=== PATIENT | male | born 1960 | race Caucasian/White ===

== ENCOUNTER 2021-02-27 07:40 | Inpatient (IN) | payer SELFPAY ==
[2021-02-27 08:00] LABS: Absolute Lymphocytes (CBC) 1.3 K/uL (0.7-4.9); Basophils % 0.8 % (0-1.3); Lymphocytes % 12.3 % (15.3-44.8); MPV 8.6 fL (7.6-11.3)
[2021-02-27] MEDS ORDERED: METHYLPREDNISOLONE 125 MG INJ ONE (08:07)
[2021-02-27] MEDS ORDERED: ALBUTEROL 2.5 MG/3 ML NEB SOL ONE (08:07)
[2021-02-27] MEDS ORDERED: IPRATROPIUM BROM 0.5MG/2.5ML ONE (08:07)
[2021-02-27 08:19] LABS: CKMB Creatine Kinase MB 6.2 ng/mL (1.0-3.6); Potassium 3.8 mmol/L (3.5-5.1); Troponin (Emerg Dept Use Only) 0.3 ng/mL (0.0-0.045)
[2021-02-27] MEDS ORDERED: ASPIRIN 81 MG CHEWABLE TABLET ONE (09:15)
[2021-02-27] MEDS ORDERED: ENOXAPARIN 60 MG/0.6 ML SQ ONE (09:16)
--- NOTE | 2021-02-27 09:49 | ER ---
Nurse's Notes [facility] Name: Sukhjinder Han Age: 60 yrs Sex: Male : 1960 Arrival Date: 02/27/2021 Time: 07:41 Bed 7 Private MD: Diagnosis: Non-ST elevation (NSTEMI) myocardial infarction Presentation: 02/27 07:41 Chief complaint: Patient states: Episodes of dizziness and shortness of breath that ss began yesterday evening after sprayed DEEP MELO OFF in van for mosquitoes. PT denies pain at this time. Coronavirus screen: Client denies travel out of the [place] in the last 14 days. Client presents with at least one sign or symptom that may indicate coronavirus-19. Standard/surgical mask placed on the client. Provider contacted for isolation considerations. Ebola Screen: Patient denies exposure to infectious person. Patient denies travel to an Ebola-affected area in the 21 days before illness onset. Initial Sepsis Screen: Does the patient meet any 2 criteria? No. Patient's initial sepsis screen is negative. Does the patient have a suspected source of infection? No. Patient's initial sepsis screen is negative. Risk Assessment: Do you want to hurt yourself or someone else? Patient reports no desire to harm self or others. Onset of symptoms was February 26, 2021. 07:41 Method Of Arrival: Wheelchair ss 07:41 Acuity: AMANDA 3 ss Historical: - Allergies: 07:44 No Known Allergies; ss - PMHx: 07:44 Myocardial infarction; Hepatitis; Anxiety; Depression; Hypertension; ss - PSHx: 07:44 Pacemaker/defib; Angioplasty; ss - Immunization history:: Adult Immunizations up to date, Client reports having NOT received the Covid vaccine. - Social history:: Smoking status: Patient reports the use of cigarette tobacco products, smokes one pack cigarettes per day. - Family history:: not pertinent. Screenin:44 Abuse screen: Denies threats or abuse. Denies injuries from another. Nutritional hb screening: No deficits noted. Tuberculosis screening: No symptoms or risk factors identified. Fall Risk None identified. Assessment: 07:45 General: Appears in no apparent distress. Behavior is cooperative, anxious. Pain: hb Denies pain. Neuro: Level of Consciousness is awake, alert, obeys commands, Oriented to person, place, time, situation. Cardiovascular: Patient's skin is warm and dry. Rhythm is regular. Respiratory: Reports shortness of breath Airway is patent Respiratory effort is even, unlabored, Respiratory pattern is tachypnea. GI: No signs and/or symptoms were reported involving the gastrointestinal system. : No signs and/or symptoms were reported regarding the genitourinary system. EENT: No signs and/or symptoms were reported regarding the EENT system. Derm: Skin is pink, warm \T\ dry. Musculoskeletal: No signs and/or symptoms reported regarding the musculoskeletal system. 09:00 Reassessment: Patient and/or family updated on plan of care and expected duration. Pain hb level reassessed. Patient is alert, oriented x 3, equal unlabored respirations, skin warm/dry/pink. 10:00 Reassessment: Patient appears in no apparent distress at this time. Patient and/or hb family updated on plan of care and expected duration. Pain level reassessed. Patient is alert, oriented x 3, equal unlabored respirations, skin warm/dry/pink. 11:00 Reassessment: Patient appears in no apparent distress at this time. Patient and/or hb family updated on plan of care and expected duration. Pain level reassessed. Patient is alert, oriented x 3, equal unlabored respirations, skin warm/dry/pink. Vital Signs: 07:41 BP 154 / 97; Pulse 96; Resp 22; Temp 98.2(O); Pulse Ox 98% on R/A; Weight 61.23 kg; Height 5 ft. 11 in. (180.34 cm); Pain 0/10; 09:07 BP 156 / 87; Pulse 98; Resp 32; Pulse Ox 99% on R/A; hb 09:45 BP 147 / 99; Pulse 107; Resp 22; Pulse Ox 95% on R/A; tr6 11:00 BP 114 / 89; Pulse 96; Resp 22; Pulse Ox 96% on 2 lpm NC; hb 07:41 Body Mass Index 18.83 (61.23 kg, 180.34 cm) ED Course: 07:41 Patient arrived in ED. ss 07:41 Dolly Gaitan MD is Attending Physician. ma2 07:43 Triage completed. ss 07:43 Jaimee Martinez RN is Primary Nurse. tr6 07:44 Arm band placed on. hb 07:44 Patient has correct armband on for positive identification. Bed in low position. Call hb light in reach. potline monitor on. Pulse ox on. NIBP on. 07:50 Inserted saline lock: 20 gauge in right antecubital area, using aseptic technique. hb Blood collected. 08:58 Chest Single View XRAY In Process Unspecified. EDMS 09:48 Chris Garcia is Hospitalizing Provider. ma2 09:52 No provider procedures requiring assistance completed. tr6 11:30 Patient admitted, IV remains in place. hb Administered Medications: 07:53 Drug: Albuterol 2.5 mg Route: Inhalation; hb 07:53 Drug: SOLU-Medrol (methylPrednisoLONE) 125 mg Route: IVP; Site: right antecubital; hb 09:37 Follow up: Response: No adverse reaction tr6 07:54 Drug: AtroVENT (ipratropium) Aerosol 0.5 mg Route: Inhalation; hb 08:20 Drug: Albuterol 2.5 mg Route: Inhalation; tr6 08:20 Drug: Albuterol 2.5 mg Route: Inhalation; tr6 08:20 Drug: AtroVENT (ipratropium) Aerosol 0.5 mg Route: Inhalation; tr6 08:20 Drug: AtroVENT (ipratropium) Aerosol 0.5 mg Route: Inhalation; tr6 09:06 Drug: Aspirin Chewable Tablet 324 mg Route: PO; tr6 09:37 Follow up: Response: No adverse reaction tr6 09:06 Drug: Lovenox (enoxaparin) 60 mg Route: Sub-Q; Site: abdomen; tr6 09:37 Follow up: Response: No adverse reaction tr6 09:39 Drug: Ativan (LORazepam) 1 mg Route: IVP; Site: right antecubital; tr6 Outcome: 09:48 Decision to Hospitalize by Provider. ma2 11:29 Admitted to Tele accompanied by tech, via wheelchair, room 210, with oxygen, with hb chart, Report called to Liss BRYSON 11:29 Condition: stable 11:29 Instructed on the need for admit, Demonstrated understanding of instructions. 11:57 Patient left the ED. ss Signatures: Dispatcher [employer] EDIN Karon Vora RN RN Violetta Moise RN RN Dolly Gaitan MD MD ma2 Jaimee Martinez, RN RN tr6
--- NOTE | 2021-02-27 09:49 | EDPHYS ---
Physician Documentation [facility] Name: Sukhjinder Han Age: 60 yrs Sex: Male : 1960 Arrival Date: 02/27/2021 Time: 07:41 Bed 7 Private MD: ED Physician Dolly Gaitan HPI: 02/27 08:38 This 60 yrs old Male presents to ER via Wheelchair with complaints of Shortness Of ma2 Breath, Chemical Inhalation. 08:38 Onset: The symptoms/episode began/occurred gradually, 1 day(s) ago. Associated signs ma2 and symptoms: Pertinent negatives: diaphoresis, fever, hemoptysis. Severity of symptoms: At their worst the symptoms were mild in the emergency department the symptoms. The patient has experienced similar episodes in the past. Historical: - Allergies: 07:44 No Known Allergies; ss - PMHx: 07:44 Myocardial infarction; Hepatitis; Anxiety; Depression; Hypertension; ss - PSHx: 07:44 Pacemaker/defib; Angioplasty; ss - Immunization history:: Adult Immunizations up to date, Client reports having NOT received the Covid vaccine. - Social history:: Smoking status: Patient reports the use of cigarette tobacco products, smokes one pack cigarettes per day. - Family history:: not pertinent. ROS: 08:38 Constitutional: Negative for fever, chills, and weight loss. ma2 08:38 All other systems are negative. Exam: 08:38 Constitutional: This is a well developed, well nourished patient who is awake, alert, ma2 and in no acute distress. Head/Face: Normocephalic, atraumatic. Eyes: Pupils equal round and reactive to light, extra-ocular motions intact. Lids and lashes normal. Conjunctiva and sclera are non-icteric and not injected. Cornea within normal limits. Periorbital areas with no swelling, redness, or edema. ENT: Nares patent. No nasal discharge, no septal abnormalities noted. Tympanic membranes are normal and external auditory canals are clear. Oropharynx with no redness, swelling, or masses, exudates, or evidence of obstruction, uvula midline. Mucous membranes moist. Neck: Trachea midline, no thyromegaly or masses palpated, and no cervical lymphadenopathy. Supple, full range of motion without nuchal rigidity, or vertebral point tenderness. No Meningismus. Chest/axilla: Normal chest wall appearance and motion. Nontender with no deformity. No lesions are appreciated. Cardiovascular: Regular rate and rhythm with a normal S1 and S2. No gallops, murmurs, or rubs. Normal PMI, no JVD. No pulse deficits. Respiratory: Lungs have equal breath sounds bilaterally, clear to auscultation and percussion. No rales, rhonchi or wheezes noted. No increased work of breathing, no retractions or nasal flaring. Abdomen/GI: Soft, non-tender, with normal bowel sounds. No distension or tympany. No guarding or rebound. No evidence of tenderness throughout. Back: No spinal tenderness. No costovertebral tenderness. Full range of motion. Skin: Warm, dry with normal turgor. Normal color with no rashes, no lesions, and no evidence of cellulitis. MS/ Extremity: Pulses equal, no cyanosis. Neurovascular intact. Full, normal range of motion. Neuro: Awake and alert, GCS 15, oriented to person, place, time, and situation. Cranial nerves II-XII grossly intact. Motor strength 5/5 in all extremities. Sensory grossly intact. Cerebellar exam normal. Normal gait. Vital Signs: 07:41 BP 154 / 97; Pulse 96; Resp 22; Temp 98.2(O); Pulse Ox 98% on R/A; Weight 61.23 kg; ss Height 5 ft. 11 in. (180.34 cm); Pain 0/10; 09:07 BP 156 / 87; Pulse 98; Resp 32; Pulse Ox 99% on R/A; hb 09:45 BP 147 / 99; Pulse 107; Resp 22; Pulse Ox 95% on R/A; tr6 11:00 BP 114 / 89; Pulse 96; Resp 22; Pulse Ox 96% on 2 lpm NC; hb 07:41 Body Mass Index 18.83 (61.23 kg, 180.34 cm) ss MDM: 07:41 Patient medically screened. ma2 08:38 Differential diagnosis: Anxiety Reaction asthma, Bronchitis reactive airway disease. ma2 Data reviewed: vital signs, nurses notes. Counseling: I had a detailed discussion with the patient and/or guardian regarding: the historical points, exam findings, and any diagnostic results supporting the discharge/admit diagnosis, the presence of at least one elevated blood pressure reading (>120/80) during this emergency department visit, the need for outpatient follow up. Medical screen evaluation completed. EMTALA emergency medical condition absent. 02/27 07:43 Order name: BMP; Complete Time: 08:44 ma2 02/27 07:43 Order name: CBC with Diff; Complete Time: 08:44 ma2 02/27 07:43 Order name: Ckmb; Complete Time: 08:44 ma2 02/27 07:43 Order name: Troponin (emerg Dept Use Only); Complete Time: 08:44 ma2 02/27 08:48 Order name: BNP; Complete Time: 09:22 ma2 02/27 08:59 Order name: COVID-19 : Document "Date of Symptom Onset" if Symptomatic. ss 02/27 07:43 Order name: EKG; Complete Time: 07:43 ma2 02/27 08:47 Order name: Chest Single View XRAY ma2 02/27 07:43 Order name: Cardiac monitoring; Complete Time: 07:53 ma2 02/27 07:43 Order name: EKG - Nurse/Tech; Complete Time: 08:06 2 02/27 07:43 Order name: IV Saline Lock; Complete Time: 07:54 ma2 02/27 07:43 Order name: Labs collected and sent; Complete Time: 07:54 ma2 02/27 07:43 Order name: O2 Per Protocol; Complete Time: 07:54 ma2 02/27 07:43 Order name: O2 Sat Monitoring; Complete Time: 08:21 ma2 Administered Medications: 07:53 Drug: Albuterol 2.5 mg Route: Inhalation; hb 07:53 Drug: SOLU-Medrol (methylPrednisoLONE) 125 mg Route: IVP; Site: right antecubital; hb 09:37 Follow up: Response: No adverse reaction tr6 07:54 Drug: AtroVENT (ipratropium) Aerosol 0.5 mg Route: Inhalation; hb 08:20 Drug: Albuterol 2.5 mg Route: Inhalation; tr6 08:20 Drug: Albuterol 2.5 mg Route: Inhalation; tr6 08:20 Drug: AtroVENT (ipratropium) Aerosol 0.5 mg Route: Inhalation; tr6 08:20 Drug: AtroVENT (ipratropium) Aerosol 0.5 mg Route: Inhalation; tr6 09:06 Drug: Aspirin Chewable Tablet 324 mg Route: PO; tr6 09:37 Follow up: Response: No adverse reaction tr6 09:06 Drug: Lovenox (enoxaparin) 60 mg Route: Sub-Q; Site: abdomen; tr6 09:37 Follow up: Response: No adverse reaction tr6 09:39 Drug: Ativan (LORazepam) 1 mg Route: IVP; Site: right antecubital; tr6 Disposition: 02/27/21 09:48 Hospitalization ordered by Chris Garcia for Inpatient Admission. Preliminary diagnosis is Non-ST elevation (NSTEMI) myocardial infarction. - Bed requested for Telemetry/MedSurg (Inpatient). - Status is Inpatient Admission. ss - Condition is Stable. - Problem is new. - Symptoms are unchanged. Signatures: Dispatcher [employer] EDMS Riana Child RN RN Karon Vora RN RN ss Baxter, Heather, RN RN Dolly Gaitan MD MD [facility] Jaimee Martinez RN RN tr6 Corrections: (The following items were deleted from the chart) 11:10 09:48 Hospitalization Ordered by Chris Garcia for Inpatient Admission. Preliminary dw diagnosis is Non-ST elevation (NSTEMI) myocardial infarction. Bed requested for Telemetry/MedSurg (Inpatient). Status is Inpatient Admission. Condition is Stable. Problem is new. Symptoms are unchanged. [facility] 11:57 11:10 02/27/2021 09:48 Hospitalization Ordered by Chris Garcia for Inpatient ss Admission. Preliminary diagnosis is Non-ST elevation (NSTEMI) myocardial infarction. Bed requested for Telemetry/MedSurg (Inpatient). Status is Inpatient Admission. Condition is Stable. Problem is new. Symptoms are unchanged. dw
[2021-02-27] MEDS ORDERED: LORazepam 2 MG/ML VIAL ONE (09:59)
--- NOTE | 2021-02-27 10:14 | RAD REPORT ---
EXAM DESCRIPTION: RAD - Chest Single View - 02/27/2021 9:00 am CLINICAL HISTORY: COUGH, possible inhalation injury COMPARISON: None TECHNIQUE: AP portable chest image was obtained 02/27/2021 9:00 am . FINDINGS: Focal airspace opacification is present in the suprahilar left upper lobe region. Air bron chograms are present. Overall interstitial prominence present. Focal interstitial and alveolar opacit ies are present in the lower right lung field. Heart and vasculature are normal. Left costophrenic an gle blunting is present. There is probably right costophrenic angle blunting as well. A defibrillator is place right-side of the chest. No acute bony abnormality seen. No acute aortic findings suspected . IMPRESSION: Left upper lobe and medial right base airspace opacification with interstitial opacities elsewhere in the chest. Small bilateral pleural effusions. The above detailed findings are possibly pulmonary edema from an inhalation injury. However, pattern suggests bilateral pneumonia. Continued close follow-up is needed to assure complete clearing and no possible underlying mass.
--- NOTE | 2021-02-27 11:05 | P.HP ---
Certification for Inpatient Patient admitted to: Observation With expected LOS: <2 Midnights Practitioner: I am a practitioner with admitting privileges, knowledge of patient current condition, hospital course, and medical plan of care. Services: Services provided to patient in accordance with Admission requirements found in Title 42 Section 412.3 of the Code of Federal Regulations Patient History Date of Service: 02/27/21 Reason for admission: Shortness of breath History of Present Illness: 60-year-old gentleman with a history of coronary artery disease, PR, congestive heart failure was brought to the emergency department due to respiratory distress. Per report patient developed shortness of breath and attributed her symptoms to possible allergy to a spray his used in his car. The patient was given Ativan for anxiety in the ED. He was somnolent and could not provide any history during my examination. Chest x-ray done in the ED edema vascular congestion. Noted patient has an AICD. Initial troponin in the ED elevated to 0.3. EKG demonstrated sinus rhythm, no significant ischemic changes. BNP elevated. Patient was given breathing treatment, full-dose Lovenox and aspirin. He is hospitalized for further management. - Past Medical/Surgical History -: CAD -: h/o PR -: AICD - Social History Smoking Status: Unknown if ever smoked Place of Residence: Home Review of Systems is unable to be obtained Physical Examination - Physical Exam General: In no apparent distress, Other (Somnolent) HEENT: Normocephalic, PERRLA, Mucous membr. moist/pink, Sclerae nonicteric Neck: Supple, 2+ carotid pulse no bruit, JVD not distended Respiratory: Normal air movement, Crackles/rales (Mild bibasilar crackles), Other (No rhonchi) Cardiovascular: No edema, Normal S1 S2, Other (Tachycardia) Gastrointestinal: Normal bowel sounds, Soft and benign, Non-distended, No tenderness Musculoskeletal: No swelling, No tenderness Integumentary: No rashes, No erythema Neurological: Normal strength at 5/5 x4 extr, Other (Somnolent) Lymphatics: No axilla or inguinal lymphadenopathy - Studies Laboratory Data (last 24 hrs) 02/27/21 07:52: WBC 10.80, Hgb 13.5 L, Hct 40.0, Plt Count 257 02/27/21 07:52: Sodium 140, Potassium 3.8, BUN 22 H, Creatinine 0.91, Glucose 176 H Assessment and Plan - Problems (Diagnosis) (1) Elevated troponin Current Visit: Yes Status: Acute (2) Acute CHF Current Visit: Yes Status: Acute (3) Coronary artery disease Current Visit: Yes Status: Acute - Plan Place patient under observation. Treat CHF exacerbation with IV Lasix. Bronchodilators Obtain echocardiogram. Continue to trend troponin. Full-dose Lovenox. Collect, validate and reconcile home medications. Monitor renal function on IV Lasix. - Advance Directives Does patient have a Living Will: No Does patient have a Durable POA for Healthcare: No
[2021-02-27] MEDS ORDERED: ACETAMINOPHEN 500 MG TAB PO PRN (12:18)
[2021-02-27] MEDS ORDERED: FUROSEMIDE 40 MG/4 ML VIAL IV SCH (17:00)
[2021-02-27] MEDS: ENOXAPARIN 60 MG/0.6 ML SQ SCH (20:23)
[2021-02-28 04:32] LABS: Absolute Lymphocytes (CBC) 1.6 K/uL (0.7-4.9); Basophils % 0.5 % (0-1.3); Hematocrit 42.4 % (39.6-49.0); Lymphocytes % 15.5 % (15.3-44.8); MPV 9.1 fL (7.6-11.3); RBC Red Blood Cell Count 4.43 M/uL (4.33-5.43)
[2021-02-28 04:47] LABS: Magnesium 2.6 mg/dL (1.8-2.4); Phosphorus 2.9 mg/dL (2.5-4.9)
[2021-02-28 04:51] LABS: BUN Blood Urea Nitrogen 23 mg/dL (7-18); Bicarbonate 24 mmol/L (21-32); Glucose Level 115 mg/dL (74-106); HDL Cholesterol 53 mg/dL (40-60); LDL Cholesterol, Calculated 121 (<130); Potassium 4.4 mmol/L (3.5-5.1); Sodium Level 144 mmol/L (136-145)
--- NOTE | 2021-02-28 08:25 | EKG ---
Test Date: 2021-02-27 Test Time: 08:03:40 Licensed Insurance Agent: KELLY MEASUREMENT RESULTS: Intervals: Rate: 89 GA: 156 QRSD: 96 QT: 400 QTc: 486 [place]: P: 69 GA: 156 QRS: 1 T: 100 INTERPRETIVE STATEMENTS: Normal sinus rhythm Left atrial enlargement Septal infarct, age undetermined Abnormal ECG No previous ECG available for comparison Electronically Signed On 02-28-21 08:23:53 CDT by Richard Armstrong
[2021-02-28] MEDS: ENOXAPARIN 60 MG/0.6 ML SQ SCH (09:00)
[2021-02-28] MEDS ORDERED: ASPIRIN EC 81 MG TAB PO SCH (09:00)
[2021-02-28 09:31] VITALS: O2SAT 94
--- NOTE | 2021-02-28 12:10 | P.DS ---
Admission Date: 02/28/21 Discharge Date: 02/28/21 Disposition: ROUTINE DISCHARGE Discharge Condition: FAIR Reason for Admission: Shortness of breath - Problems (1) Elevated troponin Current Visit: Yes Status: Acute (2) Acute CHF Current Visit: Yes Status: Acute (3) Coronary artery disease Current Visit: Yes Status: Acute Brief History of Present Illness: 60-year-old gentleman with a history of coronary artery disease, [place], congestive heart failure was brought to the emergency department due to respiratory distress. Per report patient developed shortness of breath and attributed her symptoms to possible allergy to a spray his used in his car. The patient was given Ativan for anxiety in the ED. He was somnolent and could not provide any history during my examination. Chest x-ray done in the ED edema vascular congestion. Noted patient has an AICD. Initial troponin in the ED elevated to 0.3. EKG demonstrated sinus rhythm, no significant ischemic changes. BNP elevated. Patient was given breathing treatment, full-dose Lovenox and aspirin. He is hospitalized for further management. Hospital Course: Patient admitted to the medical floor and treated for CHF exacerbation with IV Lasix. His shortness of breath resolved with treatment. Patient's symptoms likely secondary to CHF exacerbation. His troponin was mildly elevated to 0.3 and trended flat making ACS unlikely. Echocardiogram done and the result is pending to be followed. Patient's symptoms significantly improved. He is ambulating without shortness of breath and feels he is back to baseline. He is deemed stable for discharge. He is prescribed Lasix and aspirin. Vital Signs/Physical Exam: Temp Pulse Resp BP Pulse Ox 98.2 F 97 H 20 114/77 97 02/28/21 08:00 02/28/21 08:00 02/28/21 08:00 02/28/21 08:00 02/28/21 08:00 General: Alert, In no apparent distress, Oriented x3 HEENT: Mucous membr. moist/pink Neck: JVD not distended Respiratory: Clear to auscultation bilaterally, Normal air movement Cardiovascular: No edema, Regular rate/rhythm, Normal S1 S2 Gastrointestinal: Soft and benign, Non-distended, No tenderness Musculoskeletal: No swelling Integumentary: No rashes Neurological: Normal strength at 5/5 x4 extr Laboratory Data at Discharge: WBC 10.30 K/uL (4.3-10.9) 06/21/21 04:07 Hgb 14.6 g/dL (13.6-17.9) 02/28/21 04:07 Hct 42.4 % (39.6-49.0) 02/28/21 04:07 Plt Count 298 K/uL (152-406) 02/28/21 04:07 Sodium 144 mmol/L (136-145) 02/28/21 04:07 Potassium 4.4 mmol/L (3.5-5.1) 02/28/21 04:07 BUN 23 mg/dL (7-18) H 02/28/21 04:07 Creatinine 0.76 mg/dL (0.55-1.3) 02/28/21 04:07 Glucose 115 mg/dL (74-106) H 02/28/21 04:07 Phosphorus 2.9 mg/dL (2.5-4.9) 02/28/21 04:07 Magnesium 2.6 mg/dL (1.8-2.4) H 02/28/21 04:07 Troponin I 0.24 ng/mL (0.0-0.045) H 02/27/21 16:37 Triglycerides 119 mg/dL (<150) 02/28/21 04:07 Cholesterol 198 mg/dL (<200) 02/28/21 04:07 HDL Cholesterol 53 mg/dL (40-60) 02/28/21 04:07 Cholesterol/HDL Ratio 3.74 02/28/21 04:07 Home Medications: Aspirin [Aspirin EC] 81 mg PO DAILY #30 tablet. 02/28/21 Furosemide [Lasix] 40 mg PO DAILY #30 tab 02/28/21 New Medications: Aspirin [Aspirin EC] 81 mg PO DAILY #30 tablet. Furosemide [Lasix] 40 mg PO DAILY #30 tab Diet: AHA Activity: Ad gwen Followup: Unknown,U [Primary Care Provider] - 1-2 Weeks Time spent managing pt's care (in minutes): 28
--- NOTE | 2021-02-28 15:01 | RAD REPORT ---
EXAM DESCRIPTION: RAD - Chest Single View - 02/28/2021 2:56 pm CLINICAL HISTORY: CHF versus inflammatory lung disease. Chest pain. COMPARISON: Chest Single View dated 02/27/2021 FINDINGS: Portable technique limits examination quality. Moderate improvement bilateral pulmonary opacities noted since the study. Trace bilateral pleural eff usions. The heart is upper limit of normal in size. Dual lead pacer/ defibrillator device. IMPRESSION: Moderate improvement in lung aeration since yesterday's study.
[2021-02-28 15:02] VITALS: BP 130/74; TEMP 97.9
[2021-02-28 16:23] VITALS: BMI 18.1
[2021-02-28] MEDS ORDERED: ENSURE ENLIVE 237 ML CAN PO SCH (21:00)
--- NOTE | 2021-03-01 08:11 | ECHO ---
HEIGHT: 5 ft 11 in WEIGHT: 130 lb 0 oz DATE OF STUDY: 02/28/[address]: reji masterson 2-DIMENSIONAL: YES M.MODE: YES DOPPLER: YES COLOR FLOW: YES TDS: NO PORTABLE: NO DEFINITY: NO BUBBLE STUDY: NO DIAGNOSIS: CONGESTIVE HEART FAILURE CARDIAC HISTORY: CATHERIZATION: SURGERY: PROSTHETIC VALVE: PACEMAKER: MEASUREMENTS (cm) DIASTOLIC (NORMALS) SYSTOLIC (NORMALS) IVSd 0.8 (0.6-1.2) LA Diam 4.0 (1.9-4.0) LVEF 19% LVIDd 6.9 (3.5-5.7) LVIDs 6.3 (2.0-3.5) %FS 9% LVPWd 0.9 (0.6-1.2) Ao Diam 3.3 (2.0-3.7) 2 DIMENSIONAL ASSESSMENT: RIGHT ATRIUM: NORMAL LEFT ATRIUM: NORMAL RIGHT VENTRICLE: NORMAL LEFT VENTRICLE: DILATED TRICUSPID VALVE: NORMAL MITRAL VALVE: MILD MITRAL REGURGITATION PULMONIC VALVE: PULMONIC REGURGITATION AORTIC VALVE: NORMAL PERICARDIAL EFFUSION: NORMAL AORTIC ROOT: NORMAL LEFT VENTRICULAR WALL MOTION: SEVERE GLOBAL HYPOKINESIS. DOPPLER/COLOR FLOW: MILD MITRAL AND PULMONIC REGURGITATION. COMMENTS: SEVERELY DEPRESSED LEFT VENTRICULAR EJECTION FRACTION 15-20% WITH DILATED LEFT VENTRICLE. SEVERE GLOBAL HYPOKINESIS. MILD MITRAL REGURGITATION. MILD PULMONIC REGURGITATION. MODERATE DIASTOLIC DYSFUNCTION. TECHNOLOGIST: LESLIE BROWNE
--- NOTE | 2021-03-02 16:34 | EKG ---
Test Date: 2021-02-27 Test Time: 13:37:09 Regional Engineer: PATRICIA MEASUREMENT RESULTS: Intervals: Rate: 97 AR: 152 QRSD: 100 QT: 394 QTc: 500 [place]: P: 66 AR: 152 QRS: 4 T: 97 INTERPRETIVE STATEMENTS: Normal sinus rhythm Left atrial enlargement Septal infarct, age undetermined Prolonged QT Abnormal ECG Compared to ECG 02/27/2021 08:03:40 Prolonged QT interval now present Myocardial infarct finding still present Electronically Signed On 03-02-21 16:30:11 CDT by Richard Armstrong
--- NOTE | 2021-03-02 16:34 | EKG ---
Test Date: 2021-02-27 Test Time: 13:43:04 Rim Turning Machine Operator: PATRICIA MEASUREMENT RESULTS: Intervals: Rate: 0 [place]: QRSD: 0 QT: 0 QTc: 0 [place]: P: [place]: QRS: 0 T: 0 INTERPRETIVE STATEMENTS: No QRS complexes found, no ECG analysis possible Compared to ECG 02/27/2021 13:37:09 Sinus rhythm no longer present Atrial abnormality no longer present Myocardial infarct finding no longer present Prolonged QT interval no longer present Electronically Signed On 03-02-21 16:30:10 CDT by Richard Armstrong
== END 2021-02-28 15:14 | disposition home or self-care (01) | DRG 293 ==
LOC: ER 07:40 → ERHOLD 10:53 → 2ND 11:30 → OBSVTOIN 02-28 12:51
PROVIDERS: ADMIT Internal Medicine; ATTEND Internal Medicine
DX: I11.0 Hypertensive heart disease with heart failure (principal); I50.23 Acute on chronic systolic (congestive) heart failure; R06.03 Acute respiratory distress; I25.10 Atherosclerotic heart disease of native coronary artery without angina pectoris; Z95.810 Presence of automatic (implantable) cardiac defibrillator; I25.2 Old myocardial infarction; Z20.822 Contact with and (suspected) exposure to COVID-19
CPT/HCPCS: 36415; 71045; 80048; 80061; 82553; 83735; 83880; 84100; 84484; 85025; 93005; 93306; 96372; 96374; 96375; 99285; G0378; J1650; J1940; J2930; U0003